=== PATIENT | female | born 1950 | race Caucasian/White ===

== ENCOUNTER 2018-08-17 05:25 | Day surgery (SDC) | payer MEDICARE, BC ==
[2018-08-16 11:22] LABS: HEMATOCRIT 39.4 % (36.0-48.0); HEMOGLOBIN 13.7 g/dL (12-16); MCH 32.7 pg (26.0-34.0); MCHC 34.8 g/dL (31.0-37.0); MEAN PLATELET VOLUME 10.5 fL (7.4-10.4); RBC 4.19 10x6/uL (4.00-5.40); RDW 13.4 % (11.5-14.5); WBC 8.2 10x3/uL (4.8-10.8)
[2018-08-16 11:26] LABS: CALC OSMOLALITY 285 mosm/kg (275-300); CALCIUM 8.9 mg/dL (8.5-10.1); CARBON DIOXIDE 28.3 mmol/L (21.0-32.0); CHLORIDE - SERUM 103 mmol/L (98-107); CREATININE - SERUM 0.8 mg/dL (0.6-1.3); GLUCOSE 101 mg/dL (74-106); POTASSIUM - SERUM 3.9 mmol/L (3.5-5.1); SODIUM 143 mmol/L (136-145); UREA NITROGEN 14 mg/dL (7-18); eGFR NON AFRICAN AMERICAN 76 mL/min (90-120)
[~2018-08-17] VITALS: Ht 170.2 cm; Wt 81.6 kg
--- NOTE | ~2018-08-17 | OP ---
PATIENT NAME: MELI FELIZ MEDICAL RECORD: [id number] :52 LOCATION:[facility] ADMISSION DATE: SURGEON: JOSE E SEGOVIA MD DATE OF OPERATION: 08/17/2018 PREOPERATIVE DIAGNOSIS: Lumbar spinal stenosis, L4-L5, left. POSTOPERATIVE DIAGNOSIS: Lumbar spinal stenosis, L4-L5, left. SURGEON: Jose E Segovia MD PROCEDURES: Lumbar laminotomy, medial facetectomy and foraminotomy at L4-L5 on the left. DESCRIPTION AND TECHNIQUE: After induction of general endotracheal anesthesia, the patient was rolled prone on a Eevr frame. The lumbar spine was prepped and draped in the usual sterile fashion. Fluoroscopic x-ray and spinal needle localized the L4-L5 interspace on the left side. A stab incision was created with the #11 blade. A series of dilators was used to advance a METRx retractor at L4-L5 interspace on the left side. Level was confirmed with fluoroscopic x-ray. A microscope and Midas Derrick drill were used to perform a laminotomy, medial facetectomy and foraminotomy at L4-L5 on the left. Hypertrophied ligamentum flavum was removed with Cloward rongeurs. Next, the L4 and L5 nerve roots were explored and found to be free of any compression. Meticulous hemostasis was maintained throughout the wound. The wound was irrigated with copious amounts of Ancef irrigant solution. The retractor was removed. The fascia was closed with interrupted 2-0 Vicryl suture. The subdermal layer was closed with interrupted 3-0 Vicryl suture. The skin was closed with galindo. A sterile dressing was applied to the wound. The patient was awakened in good condition, taken to recovery. All counts were reported as correct. Estimated blood loss was minimal. TRANSINT:[id number] Voice Confirmation ID: [id number] DOCUMENT ID: [id number] JOSE E SEGOVIA MD CC: [id number] DICTATION DATE: 09/06/18 0741 DIGITAL COMMUNICATIONS MANAGER: 09/06/18 0939 [facility] 08/17/18 [place] [id number]
[~2018-08-17 05:25] MED LIST: BAYER CHEWABLE81 MG PO; CARTIA XT120 MG PO; DETROL LA4 MG PO; ESTRACE 0.0142.5 GM VG; FLUTICASONE PRO16 GM NASAL; FUROSEMIDE40 MG PO; GARLIC PO; K-TAB10 MEQ PO; KENALOG 0.1 % 115 GM TOPICAL; LEVOTHYROXINE50 MCG PO; MIRALAX17 GM PO; NITROQUICK0.4 MG SL; OMEPRAZOLE40 MG PO; PERCOCET 5-3251 TAB PO; PROPAFENONE HC150 MG PO; RECLAST 55 MG/100 M; SINGULAIR10 MG PO; SONATA PO; [UNRECOGNIZED DRUG - OTHER] PO
[2018-08-17 05:58] VITALS: BP 135/69; Ht 170.2 cm; Wt 81.6 kg
--- NOTE | 2018-08-17 09:43 | NUR ---
NO NUMBNESS REPORTED NEQYAL STRENGHTS IN ALL 4 EXTREMETIES
--- NOTE | 2018-08-17 11:15 | NUR ---
PATIENT ATTEMPTS TO STAND AT BEDSIDE AND AMBULATE. PATIENT STANDS WITHOUT DIZZINESS BUT WHEN TRIES TO TAKE A STEP IS VERY UNSTEADY AND REQUIRES FIRM SUPPORT TO STAY UPRIGHT. LIES BACK DOWN
--- NOTE | 2018-08-17 12:30 | NUR ---
CALL PLACED TO DR CROW ABOUT PATIENT'S INABILITY TO AMBULATE. DR CROW STATES THAT THIS IS SOMEWHAT TO BE EXPECTED CONSIDERING MARCAINE INJECTION INTO EPIDURAL SPACE. DR CROW FEELS LIKE IT WILL RESOLVE WITHIN THE NEXT 2-3 HOURS. PATIENT CONTINUES TO LIE IN BED, AWAKE, ALERT, DENIES COMPLAINTS, PATIENT EXPRESSES HAPPINESS THAT THERE IS NO PAIN AND PREOP PAIN WHEN STANDING SEEMS TO BE GONE
--- NOTE | 2018-08-17 12:30 | NUR ---
CALL PLACED TO DR CROW REGARDING PATIENT'S INABILITY TO WALK. DR CROW STATES EPIDURAL INJECTION DURING SURGERY PROBABLY CAUSED THIS AND DR CROW FEELS LIKE IT WILL GET BETTER WITHIN NEXT COUPLE OF HOURS. PATIENT UPDATED REGARDING THIS INFORMATION
[2018-08-17] MEDS ORDERED: HYDROCODON-ACE1 EA10 PO (12:37)
--- NOTE | 2018-08-17 15:35 | NUR ---
PATIENT AMBULATES TO BATHROOM WITHOUT UNSTEADINESS. RIGHT FOREARM PIV DC'D WITH TIP INTACT, PATIENT DRESSING IN PERSONAL CLOTHING, AWAITING SPOUSE TO RETURN TO PROVIDE TRANSPORTATION HOME
--- NOTE | 2018-08-17 16:05 | NUR ---
DISCHARGE INSTRUCTIONS REVIEWED WITH PATIENT AND SPOUSE. PATIENT DISCHARGED HOME VIA WHEELCHAIR TO PRIVATE VEHICLE
== END 2018-08-17 16:05 | disposition home or self-care (01) ==
LOC: D.OPS 05:25 → D.PAN 07:30 → D.OPS 07:30
PROVIDERS: Anesthesiology; ATTEND Neurological Surgery
DX: M48.061 Spinal stenosis, lumbar region without neurogenic claudication (principal); Z01.812 Encounter for preprocedural laboratory examination

== ENCOUNTER → 2019-10-23 09:14 | Outpatient (CLI) | payer MEDICARE, BC ==
[2018-08-17 05:58] VITALS: BMI 28.2
[~2019-10-23 09:14] MED LIST changes: +HYDROCODON-ACE1 EA10 PO
== END | disposition home or self-care (01) ==
LOC: D.RAD 09:14
PROVIDERS: ATTEND Neurological Surgery
DX: M54.16 Radiculopathy, lumbar region (principal)

== ENCOUNTER → 2019-12-11 12:05 | Outpatient (CLI) | payer MEDICARE ==
[2018-08-17 05:58] VITALS: BMI 28.2
[~2019-12-11 12:05] MED LIST changes: +ULTRAM50 MG PO; +VALIUM10 MG PO
== END | disposition home or self-care (01) ==
LOC: D.LABREF 12:05
PROVIDERS: ATTEND Neurological Surgery
DX: Z11.59 Encounter for screening for other viral diseases (principal)

== ENCOUNTER 2019-12-13 05:30 | Day surgery (SDC) | payer MEDICARE ==
[2019-12-11 09:42] LABS: HEMATOCRIT 42.1 % (36.0-48.0); HEMOGLOBIN 14.1 g/dL (12-16); MCHC 33.5 g/dL (31.0-37.0); MCV 95.7 fL (80.0-100.0); RBC 4.4 10x6/uL (4.00-5.40); RDW 13.1 % (11.5-14.5); WBC 7.8 10x3/uL (4.8-10.8)
[2019-12-11 09:55] LABS: ANION GAP 9.7 mmol/L (8-16); CALCIUM 9.2 mg/dL (8.5-10.1); CARBON DIOXIDE 31.7 mmol/L (21.0-32.0); POTASSIUM - SERUM 3.4 mmol/L (3.5-5.1)
[~2019-12-13] VITALS: Ht 170.2 cm; Wt 76.2 kg
--- NOTE | ~2019-12-13 | OP ---
PATIENT NAME: MELI FELIZ MEDICAL RECORD: [id number] :51 LOCATION:[facility] ADMISSION DATE: SURGEON: JOSE E SEGOVIA MD DATE OF OPERATION: 12/13/2019 PREOPERATIVE DIAGNOSIS: Lumbar spinal stenosis and disc herniation L4-L5 on the right. POSTOPERATIVE DIAGNOSIS: Lumbar spinal stenosis and disc herniation L4-L5 on the right. PROCEDURES: Lumbar laminotomy, medial facetectomy and foraminotomy at L4-L5 on the right with discectomy L4-L5 right. SURGEON: Jose E Segovia MD REDUCING MACHINE OPERATOR: Chele Charlton DESCRIPTION AND TECHNIQUE: After induction of general endotracheal anesthesia, the patient was rolled prone on the Ever frame. Lumbar spine was prepped and draped in the usual sterile fashion. Fluoroscopic x-ray and spinal needle localized the L4-L5 interspace on the right side. Level was confirmed with fluoroscopic x-ray. After infiltration of 1:100,000 epinephrine with 1% lidocaine, a stab incision was created with a #11 blade. A series of dilators were used to advance a METRx retractor at the L4-L5 interspace on the right side. A microscope and Midas Derrick drill were used to perform a laminotomy, medial facetectomy and foraminotomy at L4-L5 on the right. Hypertrophied ligamentum flavum was removed with Cloward rongeurs and a foraminotomy was carried out on the right side. A large disc herniation was removed with pituitary rongeurs and curettes, which was contained within the axilla of the right L4 nerve root. Additional material was removed from the posterior one-third of the disc space. Following this, a complete decompression of the dura was accomplished and the central canal was swept for any additional disc fragments, none were found. The retractor was removed. The fascia was closed with 2-0 Vicryl suture, the subdermal layer was closed with 3-0 Vicryl suture. The skin was closed with galindo. A sterile dressing was applied to the wound. The patient was awakened in good condition and taken to recovery. Chele Charlton APN, provided retraction and hemostasis throughout the entirety of the procedure. TRANSINT:[id number] Voice Confirmation ID: [id number] DOCUMENT ID: [id number] JOSE E SEGOVIA MD CC: [id number] DICTATION DATE: 12/31/19810 COMPLETION ENGINEER: 12/31/19 0915 DEP SDC 12/13/19 [facility] [address] [place] [place] [id number]
[2019-12-13 06:16] VITALS: BP 133/69; Ht 170.2 cm; Wt 76.2 kg
[2019-12-13] MEDS ORDERED: ULTRAM50 MG PO (10:10)
--- NOTE | 2019-12-13 11:35 | NUR ---
DC INSTRUCTIONS GIVEN TO PT/SPOUSE. STATE UNDERSTANDING. DC'D IV CATH FULLY INTACT. WILL DC SHORTLY.
--- NOTE | 2019-12-13 11:47 | NUR ---
PT LEFT UNIT VIA WC AT 1140
== END 2019-12-13 11:40 | disposition home or self-care (01) ==
LOC: D.OPS 05:30 → D.PAN 07:30 → D.OPS 08:00 → D.PAN 13:00
PROVIDERS: Anesthesiology; ATTEND Neurological Surgery
DX: M54.16 Radiculopathy, lumbar region (principal); M53.86 Other specified dorsopathies, lumbar region; E03.9 Hypothyroidism, unspecified; I10 Essential (primary) hypertension

== ENCOUNTER 2019-12-16 09:03 | Emergency (ER) | payer MEDICARE ==
[~2019-12-16] VITALS: Ht 170.2 cm; Wt 75.0 kg
[2019-12-16 09:09] VITALS: Ht 170.2 cm; Wt 75.0 kg
[2019-12-16] MEDS ORDERED: DILAUDID2 MG PO (09:50)
[2019-12-16] MEDS ORDERED: MEDROL DOSE PACK4 MG PO (09:50)
[2019-12-16] MEDS ORDERED: DECADRON4 MG PO (09:50)
[2019-12-16 11:25] VITALS: BP 129/74
== END 2019-12-16 11:07 | disposition home or self-care (01) ==
LOC: D.ER 09:03
DX: M54.17 Radiculopathy, lumbosacral region (principal); Z95.0 Presence of cardiac pacemaker; E07.9 Disorder of thyroid, unspecified; K21.9 Gastro-esophageal reflux disease without esophagitis